=== PATIENT | male | born 1950 | race Caucasian/White ===

== ENCOUNTER → 2018-02-28 | Outpatient (CLI) | payer MEDICARE, OTHER ==
[~2018-02-28] MED LIST: ACDPT PO; AMLO10TA82 PO; AMOX-355 PO; ASCO500T20 PO; ASP81CT PO; BNZ20T PO; BUDE10.22 IH; CEFD300C3 PO; CITA20TA4 PO; CLON0.5T3 PO; FLUT16SP22 NS; FURO20TA4 PO; GUAI600T PO; HYDR1TAB PO; MELO-195 PO; METF-380 PO; MTP50T PO; MULT-963 PO; PRAV80TA2 PO; SODI1PAC NS; UBID100C17 PO; [UNRECOGNIZED DRUG - OTHER] PO
--- NOTE | 2018-02-28 15:09 | Diagnostic Imaging Report ---
INDICATION: COPD, DYSPNEA COMPARISON: 09/08/2012. FINDINGS: Frontal and lateral views of the chest demonstrate normal heart size and pulmonary vascularity. The lungs are clear. There are no signs of infiltrate, pleural effusions or pneumothoraces. The visualized osseous structures show no acute abnormalities. IMPRESSION: 1. No acute process. No signs of infiltrates, effusions or pneumothoraces. Dictated by: Dictated on workstation # [id number]
== END ==
LOC: RAD 14:43
PROVIDERS: ATTEND Nurse Practitioner Family
DX: J44.9 Chronic obstructive pulmonary disease, unspecified (principal)
CPT/HCPCS: 71046

== ENCOUNTER → 2018-03-08 | Outpatient (CLI) | payer MEDICARE, OTHER ==
[~2018-03-08] MED LIST changes: +RT-ALBUTEROL SULF 2.5 MG/3 ML PRE-MIX VIAL INH ONE
== END ==
LOC: RT 13:56
PROVIDERS: ATTEND Nurse Practitioner Family
DX: J44.9 Chronic obstructive pulmonary disease, unspecified (principal); J30.2 Other seasonal allergic rhinitis; R06.00 Dyspnea, unspecified
CPT/HCPCS: 94060; 94726; 94729

== ENCOUNTER 2018-03-15 10:40 | Outpatient (CLI) | payer MEDICARE, OTHER ==
[~2018-03-15 10:40] MED LIST changes: -RT-ALBUTEROL SULF 2.5 MG/3 ML PRE-MIX VIAL INH ONE
== END 2018-03-15 11:20 | disposition home or self-care (01) ==
LOC: SLEEP 10:40
PROVIDERS: ATTEND Nurse Practitioner Family
DX: G47.10 Hypersomnia, unspecified (principal)